=== PATIENT | male | born 1980 | race Caucasian/White ===

== ENCOUNTER 2018-12-14 03:59 | Emergency (ER) | payer SELFPAY ==
[~2018-12-14] VITALS: Ht 180.3 cm; Wt 90.9 kg
[2018-12-14] MEDS ORDERED: AZITHROMYCIN 250 MG TABLET PO ONE (05:45)
[2018-12-14] MEDS ORDERED: BENZONATATE 100 MG CAPSULE PO ONE (05:45)
[2018-12-14 06:01] VITALS: BP 128/79
== END 2018-12-14 06:06 | disposition home or self-care (01) ==
LOC: EMS 04:01
DX: J40 Bronchitis, not specified as acute or chronic (principal); F17.210 Nicotine dependence, cigarettes, uncomplicated